=== PATIENT | female | born 1970 | race Caucasian/White ===

== ENCOUNTER 2017-02-14 12:57 | Emergency (ER) | payer BC ==
[~2017-02-14] VITALS: Ht 160 cm; Wt 61.2 kg
[2017-02-14 13:10] VITALS: BP_SYST 157
[2017-02-14] MEDS ORDERED: PROCHLORPERAZINE EDISYLATE 10 MG/2 ML VIAL IVP ONE (14:15)
[2017-02-14] MEDS ORDERED: KETOROLAC TROMETHAMINE 30 MG VIAL IVP ONE (14:15)
[2017-02-14] MEDS ORDERED: DIPHENHYDRAMINE INJ 50 MG/ML VIAL IVP ONE (14:15)
[2017-02-14] MEDS ORDERED: NACL 0.9% 1,000 ML IV ONE (14:15)
[2017-02-14 16:42] VITALS: BP_SYST 115
== END 2017-02-14 16:42 | disposition home or self-care (01) ==
LOC: SED 12:57
DX: G43.909 Migraine, unspecified, not intractable, without status migrainosus (principal); R03.0 Elevated blood-pressure reading, without diagnosis of hypertension
CPT/HCPCS: 70450; 81025; 96361; 96374; 96375; 99284; J0780; J1200; J1885; J7030

== ENCOUNTER 2017-02-19 20:24 | Emergency (ER) | payer BC ==
[~2017-02-19] VITALS: Ht 160 cm; Wt 61.2 kg
[2017-02-19 20:25] VITALS: BP_SYST 128
--- NOTE | 2017-02-19 22:50 | NUR ---
Patient to ER bed 07 to gown for evaluation. Side rails up. Report given to Aidan YOUNG.
--- NOTE | 2017-02-19 22:58 | NUR ---
Pt ambulated into ED c/o 11/22 migrain x 12 days. Pt has hx of migraines but pt states current episode is the longest and most painful she's had. Pt reports being in [place] ED last , was given benadryl and toradol which did not relieve her pain. Pt denies N/V today, but has had several episodes the last 12 days. Pt laying on bed with blanket over head and with room lights turned off. at bedside. No other injuries/complaints per pt/noted. Will continue to monitor.
--- NOTE | 2017-02-19 23:00 | NUR ---
ER Dr. Murillo at bedside examining patient.
[2017-02-19] MEDS: HYDROmorphone 2 MG/ML VIAL IM ONE (23:38)
--- NOTE | 2017-02-19 23:38 | NUR ---
Medication administered. Pt tolerated well. No adverse reactions noted.
--- NOTE | 2017-02-20 00:15 | NUR ---
Pt resting in bed with ice pack on forehead. Pt reports mild lightheadedness and slight relief of pain. Room lights turned off, at bedside. Will continue to monitor.
--- NOTE | 2017-02-20 00:26 | NUR ---
Care endoresed to Alan YOUNG
[2017-02-20 00:30] VITALS: BP_SYST 123
--- NOTE | 2017-02-20 00:30 | NUR ---
Patient given verbal discharge instructions and verbalizes understanding. ER MD discussed with patient the results and treatment provided. Patient in stable condition. ID arm band removed. Rx of zofran given. Patient educated on pain management and to follow up with PMD. Pain Scale 0/10. Opportunity for questions provided and answered. Verbal discharge instructions provided by ED MD Murillo. Patient left prior to recieiving written discharge instructions.
== END 2017-02-20 00:30 | disposition home or self-care (01) ==
LOC: SED 20:24
DX: G43.909 Migraine, unspecified, not intractable, without status migrainosus (principal); R03.0 Elevated blood-pressure reading, without diagnosis of hypertension
CPT/HCPCS: 36415; 86710; 96372; 99285; J1170